=== PATIENT | female | born 1985 | race African-American/Black ===

== ENCOUNTER 2016-04-27 20:42 | Emergency (ER) | payer MEDICAID ==
[~2016-04-27] VITALS: Ht 152.4 cm; Wt 54.4 kg
[~2016-04-27 20:42] MED LIST: DOCU-144 PO; HYD500 PO; HYDR-4100 PO; HYDR4TAB26 PO; KLO1 PO; ONDA8TAB9 PO; QUET400T12 PO; SERT-131 PO; ZOLP5TAB2 PO
[2016-04-27 21:00] VITALS: BP_SYST 116
--- NOTE | 2016-04-27 21:45 | NUR ---
Pt c/o sickle cell pain with nausea for 3 or 4 days. Pain is sharp 9/10 on pain scale.
--- NOTE | 2016-04-27 22:00 | NUR ---
IV site started by discharge planner in right hand 24ga.
[2016-04-27] MEDS ORDERED: NACL 0.9% 1,000 ML IV ONE (22:15)
--- NOTE | 2016-04-27 22:15 | NUR ---
CR Astudillo at bedside examining patient.
[2016-04-27 22:47] LABS: MEAN CORPUSCULAR HEMOGLOBIN 27 pg (27-31); MEAN CORPUSCULAR HGB CONC 33 % (32-36); MONOCYTES # (AUTO) 0.4 K/uL (0.0-1.0)
[2016-04-27 22:51] LABS: BASOPHILS # (AUTO) 0.2 K/uL (0.0-0.2); BASOPHILS % (AUTO) 1.9 % (0.0-2.0); CREATININE 0.97 mg/dL (0.55-1.30); EOSINOPHILS # (AUTO) 0.1 K/uL (0.0-0.4); EOSINOPHILS % (AUTO) 0.7 % (0.0-4.0); HEMATOCRIT 29.9 % (36-48); HEMOGLOBIN 9.8 g/dL (12.0-16.0); LYMPHOCYTES # (AUTO) 0.8 K/uL (1.0-5.5); LYMPHOCYTES % (AUTO) 6.9 % (20.5-51.5); MEAN CORPUSCULAR VOLUME 82 fL (79.0-98.0); MONOCYTES % (AUTO) 3.5 % (1.7-9.3); NEUTROPHILS # (AUTO) 10.5 K/uL (1.8-7.7); PLATELET COUNT (AUTO) 262 K/uL (130-430); RED BLOOD CELL COUNT(AUTO) 3.67 MIL/uL (4.2-6.2)
[2016-04-27 22:56] LABS: ALBUMIN 3.1 g/dL (3.4-4.8); TOTAL BILIRUBIN 0.2 mg/dL (0.0-1.0); TOTAL PROTEIN, SERUM 7.5 g/dL (6.4-8.3)
[2016-04-28] MEDS ORDERED: HYDROmorphone 1 MG INJ. 1 MG/ML AMPUL IVP ONE (00:15)
[2016-04-28 00:30] LABS: RETICULOCYTE COUNT 1.1 % (0.5-1.5)
[2016-04-28] MEDS ORDERED: ONDANSETRON HCL 4 MG/2 ML VIAL IVP ONE (00:30)
--- NOTE | 2016-04-28 00:30 | NUR ---
Patient resting quietly. No acute distress noted. Vital signs within normal range.
[2016-04-28] MEDS ORDERED: DIPHENHYDRAMINE INJ 50 MG/ML VIAL IVP ONE (01:30)
--- NOTE | 2016-04-28 01:44 | NUR ---
Pt stated pain level 8/10. Pt sleeping. IVF infusing well.
[2016-04-28 02:31] VITALS: BP_SYST 110
--- NOTE | 2016-04-28 02:31 | NUR ---
Patient given written and verbal discharge instructions and verbalizes understanding. ER MD discussed with patient the results and treatment provided. Patient in stable condition. ID arm band removed. IV catheter removed intact and dressing applied, no active bleeding. Patient educated on pain management and to follow up with PMD. Pain Scale 7/10. Opportunity for questions provided and answered.
== END 2016-04-28 02:31 | disposition home or self-care (01) ==
LOC: SED 20:42
DX: D57.1 Sickle-cell disease without crisis (principal); G89.29 Other chronic pain; Z90.49 Acquired absence of other specified parts of digestive tract; Z88.8 Allergy status to other drugs, medicaments and biological substances; Z88.5 Allergy status to narcotic agent
CPT/HCPCS: 36415; 80053; 85025; 85044; 96361; 96374; 96375; 99284; J1170; J1200; J2405; J7030

== ENCOUNTER 2017-01-21 18:50 | Emergency (ER) | payer MEDICAID ==
[~2017-01-21] VITALS: Ht 157.5 cm; Wt 50.8 kg
[2017-01-21 19:02] VITALS: BP_SYST 124
[2017-01-21 22:24] VITALS: BP_SYST 106
== END 2017-01-21 22:24 | disposition home or self-care (01) ==
LOC: SED 18:50
DX: G89.29 Other chronic pain (principal); M54.5 Low back pain; Z76.5 Malingerer [conscious simulation]; Z88.5 Allergy status to narcotic agent; Z88.6 Allergy status to analgesic agent; Z87.442 Personal history of urinary calculi; Z86.2 Personal history of diseases of the blood and blood-forming organs and certain disorders involving the immune mechanism
CPT/HCPCS: 99283